=== PATIENT | female | born 1985 | race Two or more races ===

== ENCOUNTER 2016-08-03 08:45 | Inpatient (IN) | payer MEDICAID ==
[~2016-08-03] VITALS: Ht 152.4 cm; Wt 76.1 kg
[2016-08-03] MEDS: LACTATED RINGER'S 1,000 ML IV SCH ×3 (09:00→22:21)
--- NOTE | 2016-08-03 09:08 | TRIAGE ---
OB Triage Datetime Report Generated by CPN: 08/03/2016 09:08 Datetime: 08/03/2016 09:06 Assessment Type: Triage Maternal Assessment Level of Consciousness: Fully Conscious DTR's/Clonus: DTRs 2+; No Clonus Headache: Denies Blurred Vision: No Respiratory Effort: Unlabored; Regular Rhythm; Equal Expansion Breath Sounds, Left: Clear and Equal Breath Sounds, Right: Clear and Equal Nausea/Vomiting: Denies RUQ Epigastric Pain: Denies Lower Extremities Edema: None Degree: None Upper Extremities Edema: None Degree: None Facial Edema: None Fall Risk Assessment History of Falling: (0) No Secondary Diagnosis: (0) No Ambulatory Aid: (0) Bedrest/Nurse Assist IV Therapy: (0) No Gait: (0) Normal/Bedrest/Immobile Mental Status: (0) Oriented to Own Ability Fall Score: 0 Fall Risk Score Definition: No Risk: No action required Datetime: 08/03/2016 09:02 Vaginal Exam Dilatation (cms): 0.0 Exam By: FOROOHAR Datetime: 07/31/2016 13:02 Time of Arrival: 08/03/2016 08:29 EGA: 40.6 Arrived By: Ambulatory Arrived From: Home Chief Complaint: PT HERE FOR POST DATES Movement: Present Contractions: Denies/Absent Rupture of Membranes: Denies Vaginal Bleeding: None Vaginal Discharge: Denies Recent Sexual Intercouse: Denies Abdominal Trauma: Not Applicable Patient Complaints: None Time Provider Notified: 08/03/2016 09:00 Provider Notified: FOROOHAR Initial Plan: SVE, EFM Datetime: 07/31/2016 12:00 Labor Evaluation Frequency: IRREGULAR Monitor Mode: External Duration (sec)2399: 40-110 Quality: Mild Pattern: Normal: <= 5 Contractions in 10 Minutes Resting Tone Prue: Relaxed Heart Rate FHR Baseline Rate: 135 Monitor Mode: External US FHR Baseline Changes: No Baseline Change Variability: Moderate 6-25 bpm Accelerations: 15X15 Decelerations: None Category: Category I Datetime: 07/31/2016 11:00 Labor Evaluation Frequency: IRREGULAR Monitor Mode: External Duration (sec)2399: 40-100 Quality: Mild Pattern: Normal: <= 5 Contractions in 10 Minutes Resting Tone Prue: Relaxed Heart Rate FHR Baseline Rate: 125 Monitor Mode: External US FHR Baseline Changes: No Baseline Change Variability: Moderate 6-25 bpm Accelerations: 15X15 Decelerations: None Category: Category I Datetime: 07/31/2016 09:55 Labor Evaluation Frequency: IRREGULAR Monitor Mode: External Duration (sec)2399: 50-110 Quality: Mild Pattern: Normal: <= 5 Contractions in 10 Minutes Resting Tone Prue: Relaxed Heart Rate FHR Baseline Rate: 125 Monitor Mode: External US FHR Baseline Changes: No Baseline Change Variability: Moderate 6-25 bpm Accelerations: 15X15 Decelerations: None Category: Category I Datetime: 07/31/2016 09:22 Vaginal Exam Dilatation (cms): 0.0 Effacement (%): 30 Station: -3 Exam By: Michael LACEY RN Datetime: 07/31/2016 08:26 Labor Evaluation Frequency: IRREGULAR Monitor Mode: External Duration (sec)2399: 40-100 Quality: Mild Pattern: Normal: <= 5 Contractions in 10 Minutes Resting Tone Prue: Relaxed Heart Rate FHR Baseline Rate: 130 Monitor Mode: External US Variability: Moderate 6-25 bpm Accelerations: 15X15 Decelerations: None Category: Category I Datetime: 07/31/2016 07:48 Assessment Type: Admission Assessment Maternal Assessment Level of Consciousness: Fully Conscious DTR's/Clonus: DTRs 2+; No Clonus Headache: Denies Blurred Vision: No Respiratory Effort: Unlabored; Regular Rhythm; Equal Expansion Breath Sounds, Left: Clear and Equal Breath Sounds, Right: Clear and Equal Nausea/Vomiting: Denies RUQ Epigastric Pain: Denies Lower Extremities Edema: None Degree: None Upper Extremities Edema: None Degree: None Facial Edema: None Fall Risk Assessment History of Falling: (0) No Secondary Diagnosis: (0) No Ambulatory Aid: (0) Bedrest/Nurse Assist IV Therapy: (0) No Gait: (0) Normal/Bedrest/Immobile Mental Status: (0) Oriented to Own Ability Fall Score: 0 Fall Risk Score Definition: No Risk: No action required Datetime: 07/31/2016 07:47 EGA: 40.3 Datetime: 07/31/2016 07:46 Time of Arrival: 07/31/2016 07:30 Arrived By: Ambulatory Arrived From: Home Chief Complaint: POST DATES Movement: Present Contractions: Denies/Absent Rupture of Membranes: Denies Vaginal Bleeding: None Vaginal Discharge: Denies Recent Sexual Intercouse: Denies Abdominal Trauma: Not Applicable Patient Complaints: Other Time Provider Notified: 07/31/2016 08:07 Provider Notified: DR CANALES (Annotations: Data stored by CPN on behalf of user) Initial Plan: NST, BPP AND EFW
[2016-08-03 09:14] VITALS: BP 130/79; PULSE 85; RESP 18; Ht 152.4 cm; Wt 76.1 kg
[2016-08-03] MEDS ORDERED: PNV91TAB3 PO (10:14)
[2016-08-03] MEDS ORDERED: DEXTROSE 5%-LR 1,000 ML IV SCH (10:18)
[2016-08-03] MEDS ORDERED: LACTATED RINGER'S 1,000 ML IV PRN (10:18)
[2016-08-03] MEDS ORDERED: LACTATED RINGER'S 1,000 ML IV SCH (10:18)
[2016-08-03] MEDS ORDERED: OXYCODONE/ACETAMINOPHEN (5/325) TAB PO PRN (10:30)
[2016-08-03] MEDS ORDERED: CARBOPROST 250 MCG INJ IM PRN (10:30)
[2016-08-03] MEDS ORDERED: BUTORPHANOL 2 MG INJ IV PRN (10:30)
[2016-08-03] MEDS ORDERED: LIDOCAINE 1% (MPF) 30 ML INJ INJ PRN (10:30)
[2016-08-03] MEDS ORDERED: AMPICILLIN 2 GM/NS (PMX) 100 ML IV ONE (10:30)
[2016-08-03] MEDS ORDERED: OXYTOCIN 30 UNITS/LR 500 ML IV PRN (10:30)
[2016-08-03] MEDS ORDERED: DINOPROSTONE 10 MG VAG SUPP VAG ONE (10:30)
[2016-08-03] MEDS ORDERED: IBUPROFEN 600 MG TAB PO PRN (10:30)
[2016-08-03] MEDS ORDERED: OXYTOCIN 30 UNITS/LR 500 ML IV SCH (10:30)
[2016-08-03] MEDS ORDERED: METHYLERGONOVINE 0.2 MG INJ IM PRN (10:30)
[2016-08-03] MEDS ORDERED: MISOPROSTOL 200 MCG TAB PR PRN (10:30)
[2016-08-03 10:39] VITALS: BP 132/81; PULSE 77
[2016-08-03 10:58] LABS: BASOPHILS % 0.6 % (0.0-2.0); EOSINOPHILS % 0.5 % (0.0-7.0); HEMATOCRIT 35.1 % (37.0-47.0); HEMOGLOBIN 11.8 g/dl (12.0-16.0); LYMPHOCYTES # 1.5 10^3/ul (0.8-2.9); LYMPHOCYTES % 22.6 % (15.0-51.0); MEAN CORPUSCULAR HEMOGLOBIN 31.2 pg (29.0-33.0); MEAN CORPUSCULAR HGB CONC 33.6 g/dl (32.0-37.0); MEAN CORPUSCULAR VOLUME 92.9 fl (82.0-101.0); MEAN PLATELET VOLUME 9.2 fl (7.4-10.4); MONOCYTE # 0.4 10^3/ul (0.3-0.9); MONOCYTES % 6.6 % (0.0-11.0); NEUTROPHIL # 4.6 10^3/ul (1.6-7.5); NEUTROPHILS % 69.7 % (39.0-77.0); PLATELET COUNT 203 10^3/UL (140-440); RED BLOOD COUNT 3.78 10^6/ul (4.20-5.40); RED CELL DISTRIBUTION WIDTH 13.6 % (11.5-14.5); UNCORRECTED WBC 6.7 10^3/ul (4.8-10.8); WHITE BLOOD COUNT 6.7 10^3/ul (4.8-10.8)
[2016-08-03 11:04] LABS: CONDITION 1
[2016-08-03 11:17] LABS: INR 0.9; PROTIME 12.1 Sec (12.2-14.2); PT RATIO 0.9
[2016-08-03] MEDS: AMPICILLIN 1 GM/NS (PMX) 50 ML IV SCH ×3 (15:04→22:21)
[2016-08-03] MEDS ORDERED: FENTAnyl 2MCG/ML-ROPIV 0.2% 100 ML ONE (21:56)
[2016-08-04] MEDS: AMPICILLIN 1 GM/NS (PMX) 50 ML IV SCH (02:46)
--- NOTE | 2016-08-04 04:48 | LDN ---
Date/Time of Note Date/Time of Note DATE: 08/04/16 TIME: 04:45 Delivery Summary of a viable baby boy weighing 7# 15 oz or 3595 grams, 19" long, and with Apgars of 9/9. Placenta Delivered: Spontaneously Meconium: none Perineum intact?: Yes Anesthesia type: Epidural Estimated blood loss: 200 Sponge & Needle done & correct: Yes All needle counts correct: Yes Any foreign bodies felt in the: No (vagina) Problems: Infant Delivery Information Sex Infant Sex: male Apgars 1 Minute: 9 5 Minute: 9 Suctioning Nose & mouth suctioned at carlitos: Yes Delee suction performed: No Umbilical Cord Umbilical cord with: 3 Vessels Cord presentations: no nuchal cord Cord Blood was obtained: Yes Mother & Baby Disposition Disposition Mom & Baby to Maternity; Good: Yes Baby to NICU: No NEO RODRIGUEZ MD Aug 04, 2016 04:48
--- NOTE | 2016-08-04 04:52 | DELSUM ---
Delivery Summary A-C Datetime Report Generated by CPN: 08/04/2016 04:52 DELIVERY PERSONNEL First Assist: Long, Char MATERNAL INFORMATION Delivery Anesthesia: Epidural Estimated Blood Loss (ml): 200 Placenta Cultured: No Maternal Complications: None LABOR SUMMARY EDC: 07/28/2016 00:00 No. Babies in Womb: 1 Attempted: No Labor Anesthesia: Epidural LABOR INFORMATION Reason for Induction: Postterm Complete Dilatation: 08/04/2016 03:43 Cervical Ripening Agents: Cervidil Oxytocin: N/A Group B Beta Strep: UNKNOWN Antibiotics # of Doses: 5 Antibiotics Time of Last Dose: 0245 Steroids Given: None Reason Steroids Not Administered: Not Applicable MEMBRANES Membranes Rupture Method: Spontaneous Rupture of Membranes: 08/03/2016 22:57 Length of Rupture (hr): 5.28 Amniotic Fluid Color: Clear Amniotic Fluid Amount: Small Amniotic Fluid Odor: Normal STAGES OF LABOR Stage 2 hr: 0 Stage 2 min: 31 Stage 3 hr: 0 Stage 3 min: 4 VAGINAL DELIVERY Episiotomy: None Laceration Extension: N/A Laceration Type: None Laceration Repair: Not Applicable Initial Vag Sponge Count: 20 Final Vag Sponge Count: 20 Initial Vag Sharps Count: 1 Final Vag Sharps Count: 1 Sponge Count Correct: Yes Sharps Count Correct: Yes BABY A INFORMATION Delivery Date/Time: 08/04/2016 04:14 Method of Delivery: Vaginal Born in Route : No : N/A Forceps: N/A Vacuum Extraction: N/A Shoulder Dystocia : N/A SHOULDER DYSTOCIA BABY A Infant Delivery Date/Time: 08/04/2016 04:14 PRESENTATION/POSITION BABY A Presentation: Cephalic Presentation: Cephalic Presentation: Cephalic Presentation: Cephalic Presentation: Cephalic Cephalic Presentation: Vertex Vertex Position: Right Occipital Posterior Breech Presentation: N/A PLACENTA INFORMATION BABY A Placenta Delivery Time : 08/04/2016 04:18 Placenta Method of Delivery: Spontaneous Placenta Status: Delivered SCORES BABY A Heart Rate 1 min: >100 bpm Resp Effort 1 min: Good Cry Reflex Irritability 1 min: Cough/Sneeze/Pulls Away Muscle Tone 1 min: Active Motion Color 1 min: Body Idana, Extremit Blue Resuscitation Effort 1 min: Tactile Stimulation SCORE 1 MIN: 9 Heart Rate 5 min: >100 bpm Resp Effort 5 min: Good Cry Reflex Irritability 5 min: Cough/Sneeze/Pulls Away Muscle Tone 5 min: Active Motion Color 5 min: Body Idana, Extremit Blue Resuscitation Effort 5 min: Tactile Stimulation SCORE 5 MIN: 9 INFANT INFORMATION BABY A Gestational Age at Delivery: 40.6 Gestational Status: Full Term- 39- 40.6 Weeks Outcome : Liveborn Condition : Stable Sex: Male IDENTIFICATION/MEDS BABY A ID Band Number: [id number] ID Band Location: Right Leg; Left Arm Sensor Number: [id number] Sensor Location : Cord Clamp Vitamin K Given : Not Given Erythromycin Given: Not Given WEIGHT/LENGTH BABY A Infant Birthweight (gm): 3595 Weight (lb): 7 Infant Weight (oz): 15 Infant Length (in): 19.00 Infant Length (cm): 48.26 CORD INFORMATION BABY A No. Cord Vessels: 3 Nuchal Cord : N/A Cord Blood Taken: Yes Suction: Mouth; Nose ASSESSMENT BABY A Complications: None Physical Findings at Delivery: Within Normal Limits Infant Respirations: Appears Normal [employer] Operating Engineer/ALS Called : No Care By: PATRICIA SHELTONFIELD PRODUCER Transferred To: Remains with Mother
[2016-08-04] MEDS ORDERED: OXYTOCIN 30 UNITS/LR 500 ML IV PRN (05:00)
[2016-08-04] MEDS ORDERED: CARBOPROST 250 MCG INJ IM PRN (05:00)
[2016-08-04] MEDS ORDERED: OXYCODONE/ASPIRIN (4.88/325) TAB PO PRN (05:00)
[2016-08-04] MEDS ORDERED: METHYLERGONOVINE 0.2 MG INJ IM PRN (05:00)
[2016-08-04] MEDS ORDERED: LANOLIN 7 GM TUBE TOP PRN (05:00)
[2016-08-04] MEDS ORDERED: MISOPROSTOL 200 MCG TAB PR PRN (05:00)
[2016-08-04 06:30] VITALS: BP 140/78; PULSE 68; RESP 18
[2016-08-04] MEDS: LACTATED RINGER'S 1,000 ML IV* SCH ×3 (06:30→20:41)
[2016-08-04] MEDS: IBUPROFEN 600 MG TAB PO SCH ×4 (06:35→23:52)
[2016-08-04 07:00] VITALS: BP 120/63; PULSE 61; RESP 0
[2016-08-04 11:53] LABS: RUBELLA ANTIBODY - IGG 4.23
[2016-08-04 13:07] VITALS: BP 110/72; PULSE 65; RESP 15
[2016-08-04 15:51] VITALS: BP 109/65; PULSE 78; RESP 14
[2016-08-04 20:00] VITALS: BP 120/64; PULSE 75; RESP 18
[2016-08-05 00:10] VITALS: BP 110/70; PULSE 72; RESP 18
[2016-08-05 04:00] VITALS: BP 102/61; PULSE 79; RESP 19
[2016-08-05] MEDS: LACTATED RINGER'S 1,000 ML IV* SCH (04:41)
[2016-08-05] MEDS: IBUPROFEN 600 MG TAB PO SCH ×3 (06:00→17:39)
[2016-08-05 08:04] LABS: BASOPHILS % 0.3 % (0.0-2.0); EOSINOPHILS % 0.4 % (0.0-7.0); HEMATOCRIT 28.5 % (37.0-47.0); HEMOGLOBIN 9.5 g/dl (12.0-16.0); LYMPHOCYTES % 23.4 % (15.0-51.0); MEAN CORPUSCULAR HEMOGLOBIN 31.2 pg (29.0-33.0); MEAN CORPUSCULAR HGB CONC 33.3 g/dl (32.0-37.0); MEAN CORPUSCULAR VOLUME 93.6 fl (82.0-101.0); MEAN PLATELET VOLUME 8.9 fl (7.4-10.4); MONOCYTE # 0.5 10^3/ul (0.3-0.9); NEUTROPHIL # 6.1 10^3/ul (1.6-7.5); NEUTROPHILS % 69.9 % (39.0-77.0); PLATELET COUNT 159 10^3/UL (140-440); RED BLOOD COUNT 3.05 10^6/ul (4.20-5.40); RED CELL DISTRIBUTION WIDTH 14.7 % (11.5-14.5); UNCORRECTED WBC 8.8 10^3/ul (4.8-10.8); WHITE BLOOD COUNT 8.8 10^3/ul (4.8-10.8)
[2016-08-05 08:30] VITALS: BP 107/50; PULSE 50; RESP 18
[2016-08-05 08:38] LABS: CONDITION 1; LH ANALYZER COMMENTS 1
[2016-08-05 16:19] VITALS: BP 118/73; PULSE 80; RESP 18
[2016-08-05 21:30] VITALS: BP 122/75; PULSE 65; RESP 20
[2016-08-06] MEDS: IBUPROFEN 600 MG TAB PO SCH ×3 (00:42→13:08)
[2016-08-06 04:15] VITALS: BP 138/88; PULSE 62; RESP 18
[2016-08-06 08:00] VITALS: BP 122/73; PULSE 70; RESP 18
[2016-08-06] MEDS ORDERED: DIPHTH/TET/ACEL PERTUSS (ADULT) 0.5 ML VIAL IM* ONE (09:00)
--- NOTE | 2016-08-06 15:44 | PN ---
Date/Time of Note Date/Time of Note DATE: 08/06/16 TIME: 15:43 OB Subjective Subjective Subjective PPD#2 is stable afebrile tolerates diet No Vb +BM +Voids BP NL VS stable Gen NAD Abd soft NT ND Genitalia No blood at perinium --->discharge plan MIGUEL ANGEL LIRIANO M.D. Aug 06, 2016 15:44
[2016-08-06 16:00] VITALS: BP 122/82; PULSE 67; RESP 19
== END 2016-08-06 17:06 | disposition home or self-care (01) | DRG 775 ==
LOC: OBT 08:45 → L-D 08:46 → OBT 09:27 → L-D 09:31 → PP1 08-04 06:24
PROC: 10E0XZZ Delivery of Products of Conception, External Approach (ICD-10-PCS; principal; 2016-08-04)
DX: O80 Encounter for full-term uncomplicated delivery (principal); Z37.0 Single live birth; Z3A.41 41 weeks gestation of pregnancy
CPT/HCPCS: 36415; 62319; 85025; 85610; 85730; 86592; 86703; 86762; 86900; 86901; 87340; 90715; G0463; J0290; J3010; J7120; J7121